=== PATIENT | female | born 1955 | race Caucasian/White ===

== ENCOUNTER → 2020-11-11 | Outpatient (CLI) | payer OTHER, MEDICARE ==
[~2020-11-11] MED LIST: DICLOFENAC SODI75 MG PO; ESOMEPRAZOLE MA40 MG PO; FLEXERIL PO; LEVOTHYROXINE75 MCG PO; PROAIR HFA8.5 GM INH; SINGULAIR 10 MG10 M1 PO; SYMBICORT160 MCG/4. INH; ZOLPIDEM TARTRA10 MG PO
[2020-11-11 10:23] LABS: HEMATOCRIT 42.6 % (37.0-47.0); HEMOGLOBIN 13.9 gm/dL (12.0-15.0); MCH 32.1 pg (26.0-34.0); MCHC 32.7 g/dL (28.0-37.0); MCV 98.3 fL (80.0-100.0); RBC 4.33 mil/uL (4.20-5.00); RDW 14.3 % (10.5-14.5); WBC 10.9 thou/uL (4.0-11.0)
[2020-11-11 10:33] LABS: ALBUMIN 3.9 g/dL (3.4-5.0); CALCIUM 9.5 mg/dL (8.5-10.1); CREATININE 1.2 mg/dL (0.6-1.0); POTASSIUM 4.5 mmol/L (3.5-5.1)
[2020-11-11 10:38] LABS: INR 0.94; PROTIME 10.3 Seconds (10.5-12.1)
[2020-11-11 10:39] LABS: URINE BILIRUBIN NEGATIVE (Negative); URINE BLOOD NEGATIVE (Negative); URINE CLARITY CLEAR; URINE COLOR YELLOW; URINE GLUCOSE-RANDOM* NEGATIVE (Negative); URINE KETONES NEGATIVE (Negative); URINE LEUKOCYTES-REFLEX NEGATIVE (Negative); URINE NITRITE-REFLEX NEGATIVE (Negative); URINE PROTEIN (DIPSTICK) NEGATIVE (Negative); URINE SPECIFIC GRAVITY 1.015 (1.005-1.035); URINE UROBILINOGEN 0.2 E.U./dl (0.2-1.0)
--- NOTE | 2020-11-11 13:36 | EKG ---
[place] [address] [facility] [place] [address] ELECTROCARDIOGRAM REPORT Name: SHEFALI MCDERMOTT Room #: [facility]#: [id number] Admission: 11/11/20 Attend Phys: Herman White MD Discharge: Date of : 53 Report #: [id number] [facility] Test Date: 2020-11-11 Test Time: 10:14:21 Pat Name: SHEFALI MCDERMOTT Department: Room: Gender: F Camera Engineer: Bushra BURKS : 1955 Requested By: Herman White Order Number: [id number] MD: Aren Dick Measurements Intervals [place] Rate: 82 P: 21 MI: 167 QRS: -37 QRSD: 122 T: 43 QT: 402 QTc: 470 Interpretive Statements Sinus rhythm Probable left atrial enlargement Right bundle branch block Left ventricular hypertrophy Baseline wander in lead(s) V5 No previous ECG available for comparison Electronically Signed On 11-11-2020 13:36:40 CDT by Aren Dick [email or web address] <ELECTRONICALLY SIGNED> By: Aren Dick MD, [facility] 11/11/20 1336 [id number] [id number] Aren Dick MD, FACC /EPI
== END ==
LOC: PAC 11-07 10:21
PROVIDERS: ATTEND Orthopaedic Surgery
DX: Z20.822 Contact with and (suspected) exposure to COVID-19 (principal); I45.10 Unspecified right bundle-branch block; I51.7 Cardiomegaly; M17.11 Unilateral primary osteoarthritis, right knee

== ENCOUNTER 2020-11-15 06:04 | Observation (INO) | payer OTHER, MEDICARE ==
[~2020-11-15] VITALS: Ht 167.6 cm; Wt 57.6 kg
[2020-11-15 08:23] VITALS: BP 150/70
--- NOTE | 2020-11-15 16:38 | NUR ---
A/O X 4. Room air. Stand by assist. IV right forearm. D5 0.45 NS @ 100 mls/hr infusing. Kim dressing to right knee. Polar pack to rigth knee. SCDs on bilateral legs. She was very nauseous and zofran was given. She threw up around 1600 and felt alot better.
[2020-11-15 17:21] VITALS: BP 185/92
[2020-11-15 19:49] VITALS: BP 169/79
--- NOTE | 2020-11-16 00:13 | NUR ---
ASSESSMENT COMPLETED. PT DOING WELL. NAUSEA ABIT BETTER. PAIN IN CONTROL WITH ORAL PAIN MEDS. RIGHT KNEE WITH JESSICA DRSG, TEDS AND POLAR PRABHJOT IN PLACE. GOOD CSM NOTED TO RIGHT FOOT. PROGRESSING TOWARDS CARE GOALS.WILL CONTINUE WITH POC TILL EOS.
[2020-11-16 04:11] VITALS: BP 160/78
[2020-11-16 07:13] VITALS: BP 144/63
[2020-11-16 07:27] VITALS: BP 112/55
--- NOTE | 2020-11-16 11:22 | NUR ---
A/O X 4. Room air, AD CORIE WITH WALKER- steady gait. Nurse went over discharge teaching with patient and her . All information understood. Student nurse removed right forearm IV, applied pressure and gauze. Polor pack sent with patient. PCT is wheeling her outside.
--- NOTE | 2020-11-16 14:47 | NUR ---
ASSESSMENT: CM REVIEWED CHART AND SPOKE WITH PATIENT. PT IS S/P RIGHT TKR. PT REPORTS LIVING IN A HOUSE WITH HER IN AN OLD FARM HOUSE. PT REPORTS THAT SHE HAS ABOUT 3 STEPS WITH BILATERAL HANDRAILS ON EACH SIDE TO ENTER. PT REPORTS ONCE INSIDE SHE HAS ABOUT 4 STEPS TO HER BATHROOM. PT REPORTS HAVING A WALKER AND CANE AT HOME. PT REPORTS HAVING OUTPATIENT THERAPY ARRANGED WITH [facility]. CM DID WELL WITH THERAPY TODAY AND ANTICIPATING PT WILL DISCHARGE HOME WITH NO NEEDS. CM WILL CONTINUE TO FOLLOW TO ASSIST NEEDED. POSSIBLE HOME TODAY.
--- NOTE | 2020-11-17 07:30 | O ---
[facility] [place] [address] OPERATIVE REPORT Name: SHEFALI MCDERMOTT Room #: 448-P [facility] Lidia Cardona#: [id number] Admission: 11/15/20 Attend Phys: Herman White MD Discharge: 11/16/20 Date of : 53 Report #: [id number] THIS REPORT FOR: cc: Brady Kwon MD, John C. MD Abraham,Herman Luna MD ~ DATE OF SERVICE: 11/15/2020 PREOPERATIVE DIAGNOSIS: Right knee osteoarthritis. POSTOPERATIVE DIAGNOSIS: Right knee osteoarthritis. PROCEDURE: Right total knee arthroplasty using Navio robotic assistance. SURGEON: Herman White MD. MAILING CLERK: Chandrika Pompa PA-C. INDICATION FOR MAILING CLERK: Throughout the case extensive retraction and manipulation of the knee was required. This was afforded to me by my refinery operator assistant. ANESTHESIA: LMA with adductor canal block. IMPLANTS: A [employer] size 4 Journey II BCS Oxinium femur, size 2 tibia, size 11 constrained polyethylene, size 29 patella. TOURNIQUET TIME: 47 minutes. ESTIMATED BLOOD LOSS: 25 mL. COMPLICATIONS: None. SPECIMENS: None. CONDITION UPON LEAVING OPERATING ROOM: Stable. INDICATIONS FOR PROCEDURE: The patient is a 65-year-old female with right knee osteoarthritis. She failed conservative measures for this and after discussion with her, she elected for right total knee arthroplasty. DESCRIPTION OF PROCEDURE: Risks, benefits, alternatives, complications were discussed in detail with the patient including but not limited to risk of anesthesia, risk of damage to nerves, arteries, blood vessels, risk for infection, bleeding, risk for continued knee pain, need for reoperation. Informed consent was obtained from the patient. Right knee was appropriately marked in the preoperative holding area. IV Ancef was given for preoperative [address] [address] OPERATIVE REPORT Name: SHEFALI MCDERMOTT Room #: 448-P TOMI Cardona#: [id number] Admission: 11/15/20 Attend Phys: Herman White MD Discharge: 11/16/20 Date of : 53 Report #: [id number] antibiotics. She was brought to the operating room and placed in supine position on the operating room table. LMA anesthesia was induced without complication. Tourniquet was placed on the right thigh. Right lower extremity was prepped and draped in normal sterile fashion. Timeout was performed properly identifying the patient and procedure as well as instrumentation and implants. All in the operating room in agreement. Right lower extremity was exsanguinated and tourniquet was inflated. Tourniquet time was 47 minutes. Standard midline approach to the knee was made with 10 blade through the skin. Dissection was taken down sharply to the fascia and deep flaps were developed medially and laterally. Fresh 10 blade was used to make a medial parapatellar arthrotomy and the knee was inspected. There was severe medial compartment osteoarthritis with moderate lateral and patellofemoral compartment osteoarthritis. ACL and PCL were removed sharply. Reference pins were placed in the femur and the tibia. The knee was digitally mapped using OpenBook robotic system. Intraoperative plan was made. We sized the size 4 femur, the size 2 tibia and a 10 spacer. After acceptance of the intraoperative plan, the distal femoral cut was made with Navio bur. Distal femoral cutting block was pinned in place and chamfer cuts were made. Attention was turned to the tibia. Remainder of the menisci removed with Bovie cautery. Tibial resection guide was pinned in place using Navio for placement. Tibial resection was made. Flexion and extension gaps were checked and found to have good balance in flexion and extension both medially and laterally. Tibia sized, found to be a size 2. Size 2 tibial trial was placed, pinned and punched. Size 4 femoral trial was placed, box cut was made. This was then trialed with a size 10 and then a size 11 polyethylene. The size 11 polyethylene demonstrated 1-2 mm of laxity laterally throughout range of motion of the knee. She did have up to 3 mm of laxity medially and was felt we could make up for this with a constrained implant, 9 mm of bone was resected from the posterior surface of the patella and a size 29 patellar trial button was placed, knee was taken through range of motion, found to be stable, found to have good patellar tracking. Trial components were removed. Bone ends were thoroughly irrigated with normal saline. Final size 2 tibia, size 4 Journey II BCS Oxinium femur and a size 29 patella were cemented in place using standard cementation techniques. While the cement cured, a periarticular injection consisting of morphine, ropivacaine, epinephrine, and Toradol was placed around the knee joint capsule. After the cement cured, tourniquet was deflated. Hemostasis was obtained with Bovie cautery. A final size 11 constrained polyethylene was placed. A gram of vancomycin was placed deep in the joint. Fascia was closed with 0 Vicryl. Skin was closed with 2-0 Vicryl, skin staple and a JESSICA dressing was applied. The patient tolerated this procedure well and went to recovery room under care of anesthesia postoperatively. <ELECTRONICALLY SIGNED> By: Herman White MD 11/17/20 0730 [id number] Herman White MD /nt
== END 2020-11-16 13:30 | disposition home or self-care (01) ==
LOC: OR → TBA 06:04 → OR 07:19 → 4S 09:07 → OR 09:07 → 4S 09:07 → OR 12:31 → EDSTATUS 13:16 → 4S 11-16 13:30
PROVIDERS: ADMIT Orthopaedic Surgery; ATTEND Orthopaedic Surgery
DX: M17.11 Unilateral primary osteoarthritis, right knee (principal); Z20.822 Contact with and (suspected) exposure to COVID-19; Z88.1 Allergy status to other antibiotic agents; Z88.8 Allergy status to other drugs, medicaments and biological substances; Z79.899 Other long term (current) drug therapy
CPT/HCPCS: 50010; 50101; 50415; 50954; 51130; 51225; 51320; 51412; 52001; 52282; 53000; 53078; 53365; 56527; 56528; 57095; 57103; 57110; 57127; 57180; 62110; 62900; 70005